=== PATIENT | male | born 1970 | race Caucasian/White ===

== ENCOUNTER 2016-06-14 09:52 | Emergency (ER) | payer MEDICAID ==
[~2016-06-14] VITALS: Ht 190.5 cm; Wt 120.0 kg
[2016-06-14 09:54] VITALS: BP 157/85
== END 2016-06-14 10:43 | disposition home or self-care (01) ==
LOC: ED 10:37
DX: L03.032 Cellulitis of left toe (principal)
CPT/HCPCS: 10060; 99283

== ENCOUNTER 2016-06-18 20:44 | Emergency (ER) | payer MEDICAID ==
[~2016-06-18] VITALS: Ht 190.5 cm; Wt 119.7 kg
[2016-06-18 20:53] VITALS: BP 138/90
[2016-06-18] MEDS ORDERED: LIDOCAINE 1%, 20ML ONE (21:46)
[2016-06-18] MEDS ORDERED: LIDOCAINE 1%, 20ML SQ ONE (22:00)
== END 2016-06-18 22:20 | disposition home or self-care (01) ==
LOC: ED 22:00
DX: L03.032 Cellulitis of left toe (principal)
CPT/HCPCS: 10060; 96372; 99283; J3490